=== PATIENT | female | born 1975 | race African-American/Black ===

== ENCOUNTER 2018-12-23 18:09 | Inpatient (IN) | payer BC ==
[2018-12-23 20:34] VITALS: BMI 36.6
[2018-12-23] MEDS ORDERED: Ondansetron PF 4 MG/2 ML Vial IVP PRN (20:50)
[2018-12-23] MEDS ORDERED: Acetaminophen 325 MG TAB PO PRN (20:50)
[2018-12-23] MEDS ORDERED: HYDROcodone/Acetaminophen 5/325 mg Tablet PO PRN ×2 (20:50)
[2018-12-23] MEDS ORDERED: Ondansetron ODT 4 MG TAB SL PRN (20:50)
[2018-12-23] MEDS ORDERED: Sodium Chloride 0.9% 1,000 ML IV SCH ×2 (21:00→21:49)
[2018-12-23] MEDS ORDERED: Enoxaparin Sodium 100 MG/ML SYRINGE SC SCH (21:00)
--- NOTE | 2018-12-24 04:37 | HP ---
PRIMARY CARE PHYSICIAN: Follows with Anna Granda MD. CODE STATUS: Full code. CHIEF COMPLAINT: Shortness of breath. HISTORY OF PRESENT ILLNESS: A 43-year-old female patient transferred from [place] since she got bilateral pulmonary embolism. The patient reported that the first symptom that presented was shortness of breath with no clear triggers, no alleviating factors. The patient reportedly had recent surgery. The symptoms were mild to moderate. She got hysterectomy on 02 of December. No other significant risk factors. The symptoms worsened with exertion. REVIEW OF SYSTEMS: CONSTITUTIONAL: No fever, chills or generalized weakness. RESPIRATORY: The patient has no cough or sputum production. The patient has excess shortness of breath. CARDIOVASCULAR: No chest pain or palpitation. GASTROINTESTINAL: No nausea, vomiting, diarrhea, or abdominal pain. RECORD LABEL INTERNSHIP: No dizziness, headache, or feeling lightheaded. GENITOURINARY: No burning urination. EXTREMITIES: No leg swelling. All other systems were reviewed and negative except for the findings mentioned above. PAST MEDICAL HISTORY: Showed the patient has hypertension. PAST SURGICAL HISTORY: Hysterectomy, oophorectomy of the left ovary, tubal ligation. PSYCHIATRIC HISTORY: No previous psych history. SOCIAL HISTORY: No alcohol use. No drug use. No smoking history. Lives at home with family. KNOWN ALLERGIES: Lipitor and lisinopril. REPORTED MEDICATIONS: 1. Hydrochlorothiazide. 2. Amlodipine. PHYSICAL EXAMINATION: VITAL SIGNS: On presentation, blood pressure 143/87 with heart rate 78, respiratory rate 13, pain was 0/10, oxygen saturation was 100% on 2 L. GENERAL APPEARANCE: The patient is alert, oriented, in no acute distress. HEENT: Eyes, normal conjunctivae. Moist oral mucosa. Anicteric. No JVD. RESPIRATORY: Bilateral air entry. No rales. No wheezes. Symmetric expansion. CARDIOVASCULAR: Normal rate, regular rhythm. No murmurs. No gallop. No edema. ABDOMEN: Soft. Normal bowel sounds. MUSCULOSKELETAL: Baseline range of motion and strength. SKIN: Warm and intact. No pallor. No rash. No redness. Capillary refill seems to intact. NEURO: No evidence of any new focal weakness. Cranial nerves seems to be intact. PSYCH: The patient is in good mood. No anxiety. Optimal judgment. LABORATORY DATA: CT angio was done, reported extensive bilateral pulmonary embolism, thyroid nodules. Labs were reviewed. The patient has white count 7.2, hemoglobin 9.7, MCV 80.6, platelet count 231. Chemistry was basically normal. ASSESSMENT AND PLAN: The patient will be placed in the hospital with following medical problems. 1. Pulmonary embolism that is bilateral and extensive as reported on the CAT scan. The patient has been started on Lovenox, counseling and discussion regarding switching to oral anticoagulation in the morning has been undertaken with the patient and family. She will decide what medication she will go on, especially once we determine what the insurance cover. The patient is stable by the time of my examination. We will continue to monitor. 2. History of hypertension has been occasionally uncontrolled, systolic blood pressure 141, earlier the last recorded is controlled. We will not treat aggressively since the patient has pulmonary embolism with risk for hypotension. 3. Deep venous thrombosis prophylaxis. Job ID: [id number]
[2018-12-24 05:55] LABS: #Eosinphils 0.2 thou/uL (0.0-0.7); #Lymphocytes 1.6 thou/uL (1.20-3.40); #Monocytes 0.5 thou/uL (0.11-0.59); #Neutrophils 3.9 thou/uL (1.40-6.50); %Basophils 0.3 % (0.0-1.0); %Eosinophils 3.8 % (0.0-10.0); %Lymphocytes 25.4 % (21.0-51.0); %Monocytes 7.7 % (0.0-10.0); %Neutrophils 62.9 % (42.0-75.0); Hemoglobin 8.3 g/dL (12.0-16.0); Mean Corpuscular HGB CONC 33.6 g/dL (32.0-36.0); Mean Corpuscular Hemoglobin 27.2 pg (27.0-31.0); Mean Corpuscular Volume 81.1 fL (78.0-98.0); Mean Platelet Volume 7.5 fL (7.4-10.4); Platelet Count 281 thou/uL (130-400); RBC Distribution Width 14.7 % (11.5-14.5); Red Blood Cell (RBC) Count 3.05 mill/uL (4.20-5.40); White Blood Cell (WBC) Count 6.2 thou/uL (4.8-10.8)
[2018-12-24 06:14] LABS: Anion Gap 11 mmol/L (10-20); BUN (Urea Nitrogen) 8 mg/dL (7.0-18.7); Calc. Creatinine Clearance 158 mL/min (70-130); Calcium 8.3 mg/dL (7.8-10.44); Carbon Dioxide 22 mmol/L (22-29); Chloride 107 mmol/L (98-107); Estimated GFR-MDRD Greater than 90; Glucose 109 mg/dL (70-105); Potassium 3.6 mmol/L (3.5-5.1); Sodium 136 mmol/L (136-145)
[2018-12-24] MEDS: Enoxaparin Sodium 100 MG/ML SYRINGE SC SCH ×2 (08:21→21:34)
[2018-12-24] MEDS ORDERED: Diabetic Tussin 200 MG/10 ML UDCUP PO PRN (08:22)
[2018-12-24] MEDS ORDERED: Bisacodyl 10 MG SUPP PR PRN (08:22)
[2018-12-24] MEDS ORDERED: Loratadine 10 MG TAB PO PRN (08:22)
[2018-12-24] MEDS ORDERED: Calcium Carbonate 500 MG ChewTAB PO PRN (08:22)
[2018-12-24] MEDS ORDERED: Artificial Tears 18 DROP/0.9 ML EA EYE PRN (08:22)
[2018-12-24] MEDS ORDERED: Zolpidem Tartrate 5 MG TAB PO PRN (08:22)
[2018-12-24] MEDS ORDERED: Sodium Chloride 0.65% Nasal 44 ML BOT EA NARE PRN (08:22)
[2018-12-24] MEDS ORDERED: hydrALAZINE 20 MG/ML VIAL SLOW IVP PRN (08:22)
[2018-12-24] MEDS ORDERED: Senokot S 8.6-50 MG TAB PO PRN (08:22)
[2018-12-24] MEDS ORDERED: Cepastat Lozenges 1 LOZ PO PRN (08:22)
[2018-12-24] MEDS ORDERED: Loperamide HCl 2 MG CAP PO PRN (08:22)
--- NOTE | 2018-12-24 09:44 | ULT ---
EXAM: Bilateral lower extremity venous duplex: Deep veins evaluated with color Doppler, spectral analysis, and compression. INDICATIONS: History of pulmonary emboli FINDINGS: Deep veins interrogated include common femoral vein, femoral vein, popliteal vein, and post erior tibial vein. These veins show normal compression and blood flow. No evidence of DVT. IMPRESSION: Negative Bilateral venous duplex exam.
--- NOTE | 2018-12-24 13:32 | PDOC.HOSPP ---
- Subjective Encounter Date: 12/24/18 Encounter Time: 10:15 Subjective: Patient seen and examined. No new complaints. No overnight events - Objective Vital Signs & Weight: Vital Signs (12 hours) Temp Pulse Resp BP Pulse Ox 12/24/18 12:17 98.1 F 74 18 130/84 100 12/24/18 08:00 99 12/24/18 07:22 97.3 F L 74 16 125/75 99 12/24/18 05:20 97.9 F 85 19 107/72 98 Weight Weight 227 lb 4.8 oz I&O: 12/23/18 12/24/18 12/25/18 06:59 06:59 06:59 Intake Total 1480 Balance 1480 Result Diagrams: 12/24/18 05:35 12/24/18 05:35 Radiology Reviewed by me: Yes (CTA, US reviewed) Hospitalist ROS - Review of Systems Eyes: denies: pain, vision change, conjunctivae inflammation, eyelid inflammation, redness, other ENT: denies: ear pain, ear discharge, nose pain, nose discharge, nose congestion , mouth pain, mouth swelling, throat pain, throat swelling, other Respiratory: denies: cough, dry, shortness of breath, hemoptysis, SOB with excertion, pleuritic pain, sputum, wheezing, other Cardiovascular: denies: chest pain, palpitations, orthopnea, paroxysmal noc. dyspnea, edema, light headedness, other Gastrointestinal: denies: nausea, vomiting, abdominal pain, diarrhea, constipation, melena, hematochezia, other Genitourinary: denies: dysuria, frequency, incontinence, hematuria, retention, other Musculoskeletal: denies: neck pain, shoulder pain, arm pain, back pain, hand pain, leg pain, foot pain, other - Medication Medications: Active Medications Generic Name Dose Route Start Last Admin Trade Name Freq PRN Reason Stop Dose Admin Enoxaparin Sodium 100 mg 12/24/18 09:00 12/24/18 08:21 Lovenox SC 100 mg 0900,2100 PAULINO Administration - Exam General Appearance: NAD, awake alert Eye: PERRL, anicteric sclera ENT: normocephalic atraumatic, no oropharyngeal lesions Neck: supple, symmetric, no JVD, no thyromegaly Heart: RRR, no murmur, no gallops, no rubs, normal peripheral pulses Respiratory: CTAB, no wheezes, no rales, no ronchi, normal chest expansion Gastrointestinal: soft, non-tender, non-distended, normal bowel sounds Extremities: no cyanosis, no clubbing, no edema Skin: normal turgor, no lesions, no rashes Neurological: cranial nerve grossly intact, normal sensation to touch, no focal deficits, no new deficit Musculoskeletal: normal tone, normal strength, no muscle wasting Psychiatric: normal affect, normal behavior, A&O x 3 Hosp A/P (1) Bilateral pulmonary embolism Code(s): I26.99 - OTHER PULMONARY EMBOLISM WITHOUT ACUTE COR PULMONALE Status : Acute (2) Obesity (BMI 30-39.9) Code(s): E66.9 - OBESITY, UNSPECIFIED Status: Chronic (3) Anemia, normocytic normochromic Code(s): D64.9 - ANEMIA, UNSPECIFIED Status: Chronic (4) Hypertension Code(s): I10 - ESSENTIAL (PRIMARY) HYPERTENSION Status: Chronic Qualifiers: Hypertension type: essential hypertension Qualified Code(s): I10 - Essential (primary) hypertension - Plan old records reviewed/req, plan discussed w/ family 12/24/18- US leg ordered and negative, continue lovenox, pt to decide about fdc warfarin vs NOAC, medication reviewed as above, symptomatic treatment
[2018-12-24] MEDS ORDERED: Clopidogrel Bisulfate 75 MG TAB ONE (17:25)
[2018-12-25 07:40] LABS: Hemoglobin 8.8 g/dL (12.0-16.0); Platelet Count 274 thou/uL (130-400)
[2018-12-25 07:46] LABS: Prothrombin Time 13.6 SEC (12.0-14.7)
[2018-12-25 07:48] LABS: D-Dimer Test 2.23 *mcg/mL (0.27-0.43)
[2018-12-25] MEDS: Enoxaparin Sodium 100 MG/ML SYRINGE SC SCH ×2 (07:58→20:55)
[2018-12-25] MEDS: Ferrous Sulfate 325 MG TAB PO SCH (07:58)
[2018-12-25 07:59] LABS: Calc. Creatinine Clearance 168 mL/min (70-130); Estimated GFR-MDRD Greater than 90
--- NOTE | 2018-12-25 11:51 | PDOC.HOSPP ---
- Subjective Encounter Date: 12/25/18 Encounter Time: 10:00 Subjective: Patient seen and examined. No new complaints. No overnight events - Objective Vital Signs & Weight: Vital Signs (12 hours) Temp Pulse Resp BP BP Pulse Ox 12/25/18 08:20 98.2 F 69 18 126/85 98 12/25/18 04:00 98.4 F 73 20 105/56 L 95 12/25/18 00:00 98.7 F 79 20 128/78 98 Weight Admit Weight 227 lb 4.8 oz Weight 227 lb 4.8 oz I&O: 12/24/18 12/25/18 12/26/18 06:59 06:59 06:59 Intake Total 1480 2700 Balance 1480 2700 Result Diagrams: 12/25/18 07:18 12/25/18 07:18 Hospitalist ROS - Review of Systems Constitutional: denies: fever, chills, sweats, weakness, malaise, other ENT: denies: ear pain, ear discharge, nose pain, nose discharge, nose congestion , mouth pain, mouth swelling, throat pain, throat swelling, other Respiratory: denies: cough, dry, shortness of breath, hemoptysis, SOB with excertion, pleuritic pain, sputum, wheezing, other Cardiovascular: denies: chest pain, palpitations, orthopnea, paroxysmal noc. dyspnea, edema, light headedness, other Gastrointestinal: denies: nausea, vomiting, abdominal pain, diarrhea, constipation, melena, hematochezia, other Genitourinary: denies: dysuria, frequency, incontinence, hematuria, retention, other Musculoskeletal: denies: neck pain, shoulder pain, arm pain, back pain, hand pain, leg pain, foot pain, other Skin: denies: rash, lesions, ebonie, bruising, other - Medication Medications: Active Medications Generic Name Dose Route Start Last Admin Trade Name Freq PRN Reason Stop Dose Admin Enoxaparin Sodium 100 mg 12/24/18 09:00 12/25/18 07:58 Lovenox SC 100 mg 0900,2100 [facility] Administration Ferrous Sulfate 325 mg 12/25/18 08:00 12/25/18 07:58 Feosol PO 325 mg QAM-WM PAULINO Administration - Exam General Appearance: NAD, awake alert Eye: PERRL, anicteric sclera ENT: normocephalic atraumatic, no oropharyngeal lesions Neck: supple, symmetric, no JVD Heart: RRR, no murmur, no gallops, no rubs, normal peripheral pulses Respiratory: CTAB, no wheezes, no rales, no ronchi Gastrointestinal: soft, non-tender, non-distended, no palpable masses Extremities: no cyanosis, no clubbing, no edema Skin: normal turgor, no lesions, no rashes Neurological: cranial nerve grossly intact, no focal deficits Musculoskeletal: normal tone, normal strength Psychiatric: normal affect, normal behavior, A&O x 3 Hosp A/P (1) Bilateral pulmonary embolism Code(s): I26.99 - OTHER PULMONARY EMBOLISM WITHOUT ACUTE COR PULMONALE Status : Acute (2) Obesity (BMI 30-39.9) Code(s): E66.9 - OBESITY, UNSPECIFIED Status: Chronic (3) Anemia, normocytic normochromic Code(s): D64.9 - ANEMIA, UNSPECIFIED Status: Chronic (4) Hypertension Code(s): I10 - ESSENTIAL (PRIMARY) HYPERTENSION Status: Chronic Qualifiers: Hypertension type: essential hypertension Qualified Code(s): I10 - Essential (primary) hypertension - Plan old records reviewed/req, plan discussed w/ family 12/24/18- US leg ordered and negative, continue lovenox, 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
[2018-12-25] MEDS ORDERED: Iron, Sodium Ferric Gluconate 250 MG in Sodium Chloride 0.9% 250 ML 250 ML IVPB SCH (12:00)
[2018-12-26 07:34] LABS: Prothrombin Time 13.5 SEC (12.0-14.7)
[2018-12-26] MEDS: Enoxaparin Sodium 100 MG/ML SYRINGE SC SCH (08:56)
[2018-12-26] MEDS: Ferrous Sulfate 325 MG TAB PO SCH (08:56)
--- NOTE | 2018-12-26 14:45 | PDOC.HOSPP ---
- Subjective Encounter Date: 12/26/18 Encounter Time: 07:45 Subjective: no sob or chest pain family at bedside - Objective Vital Signs & Weight: Vital Signs (12 hours) Temp Pulse Resp BP Pulse Ox 12/26/18 08:00 100 12/26/18 07:45 97.8 F 72 20 133/77 100 Weight Admit Weight 227 lb 4.8 oz Weight 227 lb 4.8 oz I&O: 12/25/18 12/26/18 12/27/18 06:59 06:59 06:59 Intake Total 2700 2250 Balance 2700 2250 Result Diagrams: 12/25/18 07:18 12/25/18 07:18 Hospitalist ROS - Medication Medications: Active Medications Generic Name Dose Route Start Last Admin Trade Name Freq PRN Reason Stop Dose Admin Ferrous Sulfate 325 mg 12/25/18 08:00 12/26/18 08:56 Feosol PO 325 mg QAM-WM PAULINO Administration - Exam General Appearance: NAD, awake alert Eye: PERRL, anicteric sclera ENT: no oropharyngeal lesions, moist mucosa Neck: supple, no JVD Heart: RRR, no murmur Respiratory: no wheezes, no rales Gastrointestinal: soft, non-tender, non-distended, normal bowel sounds Extremities: no cyanosis, no edema Neurological: cranial nerve grossly intact, no focal deficits Psychiatric: normal affect, A&O x 3 Hosp A/P (1) Bilateral pulmonary embolism Code(s): I26.99 - OTHER PULMONARY EMBOLISM WITHOUT ACUTE COR PULMONALE Status : Acute (2) Anemia, normocytic normochromic Code(s): D64.9 - ANEMIA, UNSPECIFIED Status: Chronic (3) Hypertension Code(s): I10 - ESSENTIAL (PRIMARY) HYPERTENSION Status: Chronic Qualifiers: Hypertension type: essential hypertension Qualified Code(s): I10 - Essential (primary) hypertension (4) Obesity (BMI 30-39.9) Code(s): E66.9 - OBESITY, UNSPECIFIED Status: Chronic - Plan had hysterectomy (abd) in the middle of nov, likely inciting event for PE no family h/o clots no prior h/o dvt is on eliquis per , dc plan in am, continue oral iron, she got iv iron yesterday hemostable
--- NOTE | 2018-12-26 17:20 | CON ---
DATE OF CONSULTATION: 12/26/2018 SERVICE: Pulmonary Medicine. REASON FOR CONSULTATION: PE. HISTORY OF PRESENT ILLNESS: The patient is a 43-year-old female with past medical history significant for dysfunctional uterine bleeding secondary to fibroids. She underwent a hysterectomy about 3 weeks ago. Since that time, she recovered very nicely, but then started having fullness in her pelvis. Over the last 3 days, she had progressive dyspnea that limited her activity. She presented to her primary care physician, who sent her to the emergency department because of tachypnea. In the emergency department, a CT PE protocol was performed, demonstrating bilateral pulmonary emboli. She had a fairly extensive clot burden but there was no stress on her heart. She denies any current fevers, chills, nausea, vomiting, pleuritic chest discomfort, hot, red, swollen joints, or rashes. She had not had any recent fevers or chills. For the last month and a half, she has been waking up with sweats. She has thyroid nodules. She remembers having ultrasound of the thyroid roughly 2 to 3 years ago, but does not remember a followup was indicated. PAST MEDICAL HISTORY: 1. Pulmonary embolism, in the postop setting. 2. Hypertension. PAST SURGICAL HISTORY: 1. Hysterectomy and unilateral oophorectomy, postop week 3. 2. Tubal ligation, remote. SOCIAL HISTORY: Negative for alcohol, tobacco, or illicit drug use. She has 2 children who are 4 and 2. She has no exposure to chemicals, dust, asbestos, or tuberculosis. FAMILY HISTORY: Noncontributory. ALLERGIES: LIPITOR, LISINOPRIL. MEDICATIONS: List of her inpatient medications was reviewed. Multiple updates were made. Lovenox was discontinued. We will put on Eliquis. REVIEW OF SYSTEMS: General, head, ears, eyes, nose, throat, cardiovascular, respiratory, GI, , musculoskeletal, neurologic, and skin are negative except as mentioned in the HPI. PHYSICAL EXAMINATION: VITAL SIGNS: Afebrile, pulse 72, blood pressure 133/77, respirations 20, and saturation 100% on room air. GENERAL: The patient is awake and alert, in no apparent distress. LUNGS: Very good air entry without any prolonged expiratory phase, wheezing, crackles, or rhonchi present. HEART: Normal rate, regular. ABDOMEN: Soft, nontender, and nondistended. Bowel sounds are positive. MUSCULOSKELETAL: No cyanosis or clubbing. There is no pitting in the bilateral lower extremities. NEUROLOGIC: Grossly nonfocal. LABORATORY DATA: WBC 6.2, hemoglobin 8.8 and roughly stable, platelets 274,000. INR 1.3. Basic metabolic profile is otherwise unremarkable. Ferritin 14.45. Occult blood is negative. IMAGING STUDIES: 1. Ultrasound of bilateral lower extremities demonstrates no evidence of DVT. 2. CT of the chest demonstrates bilateral PE with fairly extensive clot burden. That being said, the right ventricle appears to be normal. There is no reflux of contrast into the inferior vena cava. ASSESSMENT: 1. Acute pulmonary embolism. 2. Iron-deficiency anemia. 3. Hysterectomy, postop week 3. 4. Obstructive sleep apnea, likely. DISCUSSION AND PLAN: The patient is doing absolutely wonderful from a respiratory standpoint. She has been able to ambulate and her shortness of breath seems to be improving. Her BNP was unremarkable. As such, it does not appear if there is any significant right ventricular heart strain. As such, the tPA is not indicated. I will repeat a BNP, troponin, and check a TSH in the morning. If all of these are unremarkable, the patient will be stable for discharge from the hospital. In the outpatient setting, I would encourage her primary care physician to do an overnight oximetry study. If the oxygen desaturation index is elevated, this should prompt a home sleep study. If she remains in-house, I will follow, but if all goes well , she will be stable for discharge in the morning and will not require any specific pulmonary followup. Duration of anticoagulation should be 9 months. 70 minutes have been devoted to this patient in various activities. I personally reviewed all imaging studies and laboratory data noted within this document. For fifty percent of this time, I was interacting with the patient at the bedside or coordinating care with the care team. For the remainder of the time I was immediately available to the patient in the hospital unit. Job ID: [id number] [facility]
[2018-12-26] MEDS: Apixaban 5 MG TAB PO SCH (20:59)
[2018-12-27 07:47] VITALS: BP 131/88; TEMP 98
[2018-12-27 08:15] LABS: Prothrombin Time 13.6 SEC (12.0-14.7)
[2018-12-27] MEDS: Apixaban 5 MG TAB PO SCH (08:27)
[2018-12-27] MEDS: Ferrous Sulfate 325 MG TAB PO SCH (08:28)
[2018-12-27 08:29] LABS: Anion Gap 13 mmol/L (10-20); BUN (Urea Nitrogen) 8 mg/dL (7.0-18.7); Calc. Creatinine Clearance 154 mL/min (70-130); Calcium 8.8 mg/dL (7.8-10.44); Carbon Dioxide 23 mmol/L (22-29); Chloride 105 mmol/L (98-107); Estimated GFR-MDRD Greater than 90; Glucose 99 mg/dL (70-105); Hemoglobin 9.1 g/dL (12.0-16.0); Platelet Count 235 thou/uL (130-400); Potassium 3.8 mmol/L (3.5-5.1); Sodium 137 mmol/L (136-145)
--- NOTE | 2018-12-28 07:25 | DIS ---
DATE OF ADMISSION: 12/23/2018 DATE OF DISCHARGE: 12/27/2018 DISCHARGE DISPOSITION: Home. PRIMARY DISCHARGE DIAGNOSES: Bilateral pulmonary embolism, hypertension, recent history of abdominal hysterectomy with benign findings found on histopathology per the patient. DISCHARGE MEDICATION: 1. Norvasc 5 mg p.o. daily. 2. Hydrochlorothiazide 25 mg p.o. daily. 3. Eliquis 10 mg twice daily for 6 days, then 5 mg p.o. twice daily for 6 months. ALLERGIES: LISINOPRIL AND ATORVASTATIN. INPATIENT CONSULT: Dr. Foster for Pulmonology. PROCEDURES DONE DURING HOSPITALIZATION: CT angio chest done shows bilateral pulmonary embolus. Ultrasound venous Doppler showed no evidence of DVT. H and H of 9 and 27, platelet count 235. BUN 8, creatinine 0.7. TSH 1.40. BNP less than 10. Ferritin was 14, MCV was 81. DISCHARGE PLAN: The patient to follow up with her primary care physician in 1 week, her GRANT ADMINISTRATOR as advised, and Dr. Foster in 4 to 6 weeks. BRIEF COURSE DURING HOSPITALIZATION: The patient initially came to ER with complaints of shortness of breath. She went to [place] [facility], from where she was transferred here for bilateral pulmonary embolus. She had history of recent abdominal hysterectomy done a month back. Ultrasound venous Doppler was negative for any DVT. Likely inciting event is her recent abdominal hysterectomy. She has had consultation with Dr. Foster for Pulmonology. The patient initially was on Lovenox for 48 hours and has been switched over to Eliquis. She is ambulating and eating well prior to discharge. The patient is counseled to follow up with her primary care physician in 1 week. Please note, I have seen and examined the patient on the day of discharge. Job ID: [id number]
--- NOTE | 2018-12-29 02:39 | PQF ---
[employer] Supervisor [employer] Crystal Reports Winform Viewer NELSON JIMENEZ VINAYA KUMAR MD [id number] [id number] CLINICAL DOCUMENTATION CLARIFICATION FORM: POST DISCHARGE Addendum to original discharge summary date: ____ Late entry note date: __ DATE: 12/29/18 ATTN: Alexander Ruvalcaba Please exercise your independent, professional judgment in responding to the clarification form. Clinical indicators are provided on the bottom of this form for your review Can you please further specify if pulmonary embolism is a post op complication or not based on the clinical indicators below? Please check appropriate box(s): [ ] Pulmonary Artery Embolism is a post-op complication [ ] Pulmonary Artery Embolism is not a post-op complication [ ] Pulmonary Vein Embolism is a post-op complication [ ] Pulmonary Vein Embolism is not a post-op complication [ ] Other diagnosis please specify [ x ] Unable to determine but could be likely inciting event. In addition, please specify: Present on Admission (POA): [ x ] Yes [ ] No [ ] Unable to determine CLINICAL INDICATORS - SIGNS / SYMPTOMS / LABS PN p3 12/26 Dr. Zamarripa - had hysterectomy (and) in the middle of nov, likely inciting event for PE DS p1 12/27 Dr. Zamarripa - she was transferred here for bilateral pulmonary embolus. Likely inciting event is her recent abdominal hysterectomy Consult p1 12/26 Dr. Foster acute pulmonary embolism Consult p1 12/26 Dr. Foster obstructive sleep apnea, likely H&P p1 12/24 Dr. Saxena - The symptoms worsened with exertion H&P p2 12/24 Dr. Saxena - history of hypertension has been occasionally uncontrolled RISK FACTORS Obesity-Consult 12/26 Dr. Foster hypertension-H&P 12/24 Dr. Saxena Obstructive sleep apnea- Consult 12/26 Dr. Foster Iron deficiency anemia-Consult 12/26 Dr. Foster TREATMENT: Pulmonary Consult-Consult 12/26 Dr. Foster Enoxaparin SC-MAY 24 Clopidogrel-MAY 24 (This form is maintained as a part of the permanent medical record) 2014 [employer]. All Rights Reserved Fly [email or web address] [not provided] MTDD
[2019-01-03] MEDS ORDERED: Apixaban 5 MG TAB PO SCH (09:00)
== END 2018-12-27 11:23 | disposition home or self-care (01) | DRG 176 ==
LOC: ERS 18:09 → T4-B 18:30
PROVIDERS: ADMIT Internal Medicine; ATTEND Internal Medicine
DX: I26.99 Other pulmonary embolism without acute cor pulmonale (principal); I10 Essential (primary) hypertension; E66.9 Obesity, unspecified; D50.9 Iron deficiency anemia, unspecified; Z68.36 Body mass index [BMI] 36.0-36.9, adult; Z88.8 Allergy status to other drugs, medicaments and biological substances
CPT/HCPCS: 36415; 80048; 82274; 82565; 82728; 83880; 84443; 84484; 85014; 85018; 85025; 85049; 85379; 85610; 93970; 96360; 96361; J1650; J2916; J7050

== ENCOUNTER 2019-01-29 09:08 | Outpatient (CLI) | payer BC ==
--- NOTE | 2019-01-29 11:09 | ULT ---
THYROID ULTRASOUND: Date: 01/29/19 COMPARISON: None. HISTORY: Thyroid goiter. TECHNIQUE: Multiplanar Biggs scale sonographic imaging of the thyroid gland obtained. FINDINGS: Thyroid isthmus measures 6.0 mm in AP dimension. The right lobe measures 3.0 x 5.8 x 2.5 cm. The left lobe measures 3.0 x 6.4 x 2.3 cm. There is a subtle small heterogeneously hypoechoic nodule within the mid portion of the right lobe of the thyroid gland measuring approximately 6.0 x 4.0 x 6.0 mm. Within the superior aspect of the left lobe of the thyroid gland, there is a complex cystic nodule me asuring 5.0 x 4.0 x 5.0 mm. Within the posterior aspect of the mid portion of the left lobe of the th yroid gland, there is a solid and cystic 1.3 x 1.1 x 1.4 cm nodule. Within the inferior aspect of the left lobe of the thyroid gland, there is a 1.4 x 1.3 x 1.5 cm hypoechoic solid and cystic nodule. In the region of the thyroid isthmus, there is an ill-defined isoechoic 9.0 x 8.0 x 8.0 mm nodule. The largest nodule on the left located within the inferior aspect of the left lobe demonstrates a spo ngiform configuration. IMPRESSION: TI-RADS 3 - Mildly suspicious. Given size of nodules greater than or equal to 1.5 cm, recommend follo w-up ultrasound in 6-12 months. POS: OFF
== END 2019-01-29 09:09 | disposition home or self-care (01) ==
LOC: BICULT 09:08
PROVIDERS: ATTEND Family Medicine
DX: E04.9 Nontoxic goiter, unspecified (principal); E04.2 Nontoxic multinodular goiter
CPT/HCPCS: 76536